=== PATIENT | male | born 1965 | race Two or more races ===

== ENCOUNTER → 2024-11-13 | Outpatient (BNVA) | payer MEDICAID, SELFPAY | END | disposition home or self-care (01) | PROVIDERS: PCP Nurse Practitioner Family; Referring Provider Nurse Practitioner Family; Visit Provider Nurse Practitioner Family | DX: M53.3 Sacrococcygeal disorders, not elsewhere classified (principal); M79.621 Pain in right upper arm; I10 Essential (primary) hypertension; N50.812 Left testicular pain | CPT/HCPCS: 99214 ==

== ENCOUNTER → 2024-11-14 | Outpatient (CLI) | payer MEDICAID, SELFPAY ==
--- NOTE | 2024-11-14 09:24 | XR_ITS ---
Examination: Shoulder,right, 3 views Technique: Shoulder AP internal rotation, AP external rotation, Y view shoulder, 3 views Exam date and time :November 14, 2024 1001 hours INDICATIONS: Right shoulder pain after falling one month ago. FINDINGS: Deformity of the right humeral head which appears old but clinical correlation advised No shoulder dislocation Large old bone fragment adjacent to the humeral head IMPRESSION: No definite acute shoulder fracture If pain persists, consider CT scan shoulder without contrast follow-up given the extensive deformity of the humeral head
--- NOTE | 2024-11-14 09:24 | XR_ITS ---
Examination: Right elbow 2 views Technique one AP lateral right elbow 2 views Exam date and time: November 14, 2024 1007 hours INDICATIONS: Patient fell one month ago with injury to the right elbow, right elbow pain FINDINGS: Mild elbow osteoarthritis No fracture or dislocation IMPRESSION: No fracture or dislocation
== END | disposition home or self-care (01) ==
LOC: CDIM 09:11
PROVIDERS: PCP Nurse Practitioner Family; Referring Provider Nurse Practitioner Family; Visit Provider Nurse Practitioner Family
DX: M25.511 Pain in right shoulder (principal); S59.901A Unspecified injury of right elbow, initial encounter; W19.XXXA Unspecified fall, initial encounter
CPT/HCPCS: 73030; 73070

== ENCOUNTER → 2024-11-14 | Outpatient (CLI) | payer MEDICAID, SELFPAY ==
--- NOTE | 2024-11-14 12:33 | XR_ITS ---
Examination: Sacrococcyx 3 views TECHNIQUE: AP inclined AP lateral sigmoid are 6 3 views Exam date and time: November 14, 2024 1402 hours INDICATIONS: Patient fell one month ago with injury of the sacrum, sacral pain. FINDINGS: Adequate alignment sacrococcygeal segments No acute fracture IMPRESSION: No acute sacral or coccygeal fracture
== END | disposition home or self-care (01) ==
LOC: CDIM 12:26
PROVIDERS: PCP Nurse Practitioner Family; Referring Provider Nurse Practitioner Family; Visit Provider Nurse Practitioner Family
DX: S39.92XA Unspecified injury of lower back, initial encounter (principal); W19.XXXA Unspecified fall, initial encounter
CPT/HCPCS: 72220

== ENCOUNTER → 2024-11-29 | Outpatient (BNVA) | payer MEDICAID, SELFPAY | END | disposition home or self-care (01) | PROVIDERS: PCP Nurse Practitioner Family; Referring Provider Nurse Practitioner Family; Visit Provider Nurse Practitioner Family | DX: M79.601 Pain in right arm (principal); Z71.2 Person consulting for explanation of examination or test findings | CPT/HCPCS: 99214 ==

== ENCOUNTER 2024-12-05 09:30 | Day surgery (SDC) | payer MEDICAID, SELFPAY ==
[2024-12-05] VITALS (11 sets, daily range): BP systolic 137–169; BP diastolic 87–100; PULSE 56–66; RESP 12–18; TEMP 36.2–36.7; O2SAT 94–99; BMI 33.1
[2024-12-05] MEDS: SODIUM CHLORIDE 0.9% 500 ML 500 ML 20 ML IV (13:43)
[2024-12-05] MEDS: DiphenhydrAMINE INJ 50 MG/ML VIAL 25 MG IV (13:47)
[2024-12-05] MEDS: MIDAZOLAM INJ 1 MG/ML VIAL 2 ML (ASD USE ONLY) 2 MG IV (13:54)
[2024-12-05] MEDS: fentaNYL CIT INJ 50 mCg/ML AMP 2ML (ASD USE ONLY) IV (13:54)
== END 2024-12-05 15:25 | disposition home or self-care (01) ==
PROVIDERS: PCP Family Medicine; Referring Provider Surgery; Visit Provider Surgery
PROC: 0DBE8ZX Excision of Large Intestine, Via Natural or Artificial Opening Endoscopic, Diagnostic (ICD-10-PCS; CPT 45380; principal; 2024-12-05 10:45)
DX: Z12.11 Encounter for screening for malignant neoplasm of colon (principal)
CPT/HCPCS: 45378; J1200; J2250; J3010; J7040

== ENCOUNTER → 2025-03-30 | Outpatient (BNVA) | payer MEDICAID, SELFPAY | END | disposition home or self-care (01) | PROVIDERS: PCP Nurse Practitioner Family; Referring Provider Nurse Practitioner Family; Visit Provider Nurse Practitioner Family | DX: E11.9 Type 2 diabetes mellitus without complications (principal); N50.812 Left testicular pain; E78.5 Hyperlipidemia, unspecified; I10 Essential (primary) hypertension; E66.9 Obesity, unspecified; Z68.30 Body mass index [BMI] 30.0-30.9, adult; K02.9 Dental caries, unspecified; Z11.3 Encounter for screening for infections with a predominantly sexual mode of transmission | CPT/HCPCS: 90471; 90677; 90715; 93005; 96372; 99173; 99215; G0009 ==

== ENCOUNTER → 2025-04-13 | Outpatient (BNVA) | payer MEDICAID, SELFPAY | END | disposition home or self-care (01) | PROVIDERS: PCP Nurse Practitioner Family; Referring Provider Nurse Practitioner Family; Visit Provider Nurse Practitioner Family | DX: Z71.2 Person consulting for explanation of examination or test findings (principal); E11.9 Type 2 diabetes mellitus without complications; E78.5 Hyperlipidemia, unspecified; I10 Essential (primary) hypertension | CPT/HCPCS: 99212; G0463 ==

== ENCOUNTER → 2025-07-23 | Outpatient (BNVA) | payer MEDICAID, SELFPAY | END | disposition home or self-care (01) | PROVIDERS: PCP Nurse Practitioner Family; Referring Provider Nurse Practitioner Family; Visit Provider Nurse Practitioner Family | DX: Z71.2 Person consulting for explanation of examination or test findings (principal); E78.5 Hyperlipidemia, unspecified; E11.9 Type 2 diabetes mellitus without complications; Z23 Encounter for immunization | CPT/HCPCS: 90471; 90677; 99214; G0009 ==

== ENCOUNTER → 2025-08-27 | Outpatient (BNVA) | payer MEDICAID, SELFPAY | END | disposition home or self-care (01) | PROVIDERS: PCP Nurse Practitioner Family; Referring Provider Nurse Practitioner Family; Visit Provider Nurse Practitioner Family | DX: E11.9 Type 2 diabetes mellitus without complications (principal); I10 Essential (primary) hypertension; Z28.21 Immunization not carried out because of patient refusal | CPT/HCPCS: 99214 ==